=== PATIENT | male | born 1985 | race Caucasian/White ===

== ENCOUNTER 2017-05-06 03:37 | Observation (INO) | payer OTHER ==
[2017-05-06 04:30] LABS: % IMMATURE GRANULYOCYTES 0.3 % (0.0-1.1); ABSOLUTE IMMATURE GRANULOCYTES 0.04 10^3/uL (0.00-0.10); ADD DIFF? NO; ADD MORPH? NO; ADD SCAN? NO; ATYPICAL LYMPHOCYTE FLAG 0 (0-99); FRAGMENT RBC FLAG 0 (0-99); HEMATOCRIT 47.2 % (40.0-51.0); HEMOGLOBIN 15.9 g/dL (13.7-17.5); LEFT SHIFT FLG 0 (0-99); LIPEMIA HEMOLYSIS FLAG 80 (0-99); MEAN CELL HEMOGLOBIN 32.4 pg (27.9-34.1); MEAN CELL HEMOGLOBIN CONCENTR. 33.7 g/dL (32.4-36.7); MEAN CELL VOLUME 96.3 fL (81.5-99.8); MEAN PLATELET VOLUME 10.8 fL (8.7-11.7); PLATELET CLUMPS FLAG 10 (0-99); PLATELET COUNT 256 10^3/uL (150-400); RED CELL DISTRIBUTION WIDTH 12.5 % (11.5-15.2)
[2017-05-06] MEDS ORDERED: LORazepam 2 MG/ML INJ IVP ONE (04:32)
--- NOTE | 2017-05-06 04:32 | EDPHY ---
H & P Stated Complaint: seizure (first time) Time Seen by Provider: 05/06/17 04:07 HPI/ROS: HPI The patient presents with seizure, brought in by ambulance. He was sleeping next to his fiancee at 3:00 a.m., she got up to use the bathroom and noticed that the bed was shaking. She turned notice that he was rigid exhibiting tonic- clonic activity in his upper and lower extremities. This lasted for 1-2 minutes. She called EMS and by the time they arrived his seizure had ceased. He was very tired and confused. His glucose was normal. He has no prior history of seizures. He does not have a family history of epilepsy. He is under stress and has not been sleeping well. He is planning a wedding and he and his fiancee are looking for a home to by. Last night, he went on a mountain bike ride which is quite normal for him. He had a small dinner. He has felt well lately with no fever, no headache. REVIEW OF SYSTEMS Constitutional: No fever, no chills. Eyes: No discharge. ENT: No sore throat. Cardiovascular: No chest pain, no palpitations. Respiratory: No cough, no shortness of breath. Gastrointestinal: No abdominal pain, no vomiting. Genitourinary: No hematuria. Musculoskeletal: No back pain. Skin: No rashes. Neurological: No headache. PMHx: Healthy Soc Hx: Lives with his becca, no alcohol, no drugs PHYSICAL General Appearance: Tired appearing Eyes: Pupils equal and round no pallor or injection ENT, Mouth: Mucous membranes dry Respiratory: There are no retractions, lungs are clear to auscultation Cardiovascular: Regular rate and rhythm Gastrointestinal: Abdomen is soft and non-tender, no masses, bowel sounds normal Neurological: Tired, slow to respond to questions, Poorly cooperative with neurologic exam, cranial nerves 2-12 intact, though no pronator drift, weakness of the lower extremities Skin: Warm and dry, no rashes Musculoskeletal: Neck is supple non tender Extremities: symmetrical, full range of motion Psychiatric: No agitation Source: Patient, Family, EMS Exam Limitations: Clinical condition - Personal History Current Tetanus/Diphtheria Vaccine: Unsure Current Tetanus Diphtheria and Acellular Pertussis (TDAP): Unsure - Medical/Surgical History Hx Asthma: No Hx Chronic Respiratory Disease: No Hx Diabetes: No Hx Cardiac Disease: No Hx Renal Disease: No Hx Cirrhosis: No Hx Alcoholism: No Hx HIV/AIDS: No Hx Splenectomy or Spleen Trauma: No Other PMH: denies - Social History Smoking Status: Never smoked Constitutional: Initial Vital Signs Temperature (C) 36.8 C 05/06/17 03:47 Heart Rate 72 05/06/17 03:47 Respiratory Rate 16 05/06/17 03:47 Blood Pressure 108/64 05/06/17 03:47 O2 Sat (%) 98 05/06/17 03:47 O2 Delivery Mode Room Air O2 (L/minute) 2 Allergies/Adverse Reactions: No Known Allergies Allergy (Unverified 05/06/17 03:48) Home Medications: Medication Instructions Recorded NK [No Known Home Meds] 05/06/17 Medical Decision Making - Diagnostics Imaging Results: CT of head, noncontrast, is unremarkable, discussed with Dr. Desai of Radiology. Differential Diagnosis: This is a 31-year-old male who presents brought in by ambulance for new onset seizure, witnessed by save. He had tonic-clonic activity and appears to be postictal currently. Differential diagnosis includes epilepsy, dehydration, electrolyte disturbance, occult injury, less likely infection given no fever or recent illness or confusion. In the emergency room, basic labs were checked and did reveal an anion gap acidosis which is thought to be a lactic acidosis from his seizure. He is given a L of IV fluid for this. Subsequently, he went to CT scan, however on the way he had a 30 second tonic-clonic episode again with a postictal period following this. He was given Ativan [address] scan was unremarkable. I consulted with [facility], Dr. mathew. She recommends admission for MRI and EEG. She would not start on Keppra at this point, however he has a no other seizure, she recommends Keppra load of 1 g. I have discussed the case with the hospitalist, Dr. Carrasco who will see the patient for admission. - Data Points Laboratory Results: Laboratory Results 05/06/17 03:45 05/06/17 03:45 05/06/17 05/06/17 05/06/17 Unknown 03:45 03:45 WBC 13.55 10^3/uL H 10^3/uL (3.80-9.50) RBC 4.90 10^6/uL 10^6/uL (4.40-6.38) Hgb 15.9 g/dL g/dL (13.7-17.5) Hct 47.2 % % (40.0-51.0) MCV 96.3 fL fL (81.5-99.8) MCH 32.4 pg pg (27.9-34.1) MCHC 33.7 g/dL g/dL (32.4-36.7) RDW 12.5 % % (11.5-15.2) Plt Count 256 10^3/uL 10^3/uL (150-400) MPV 10.8 fL fL (8.7-11.7) Neut % (Auto) 42.7 % % (39.3-74.2) Lymph % (Auto) 48.6 % H % (15.0-45.0) [place] % (Auto) 7.1 % % (4.5-13.0) Eos % (Auto) 0.6 % % (0.6-7.6) Baso % (Auto) 0.7 % % (0.3-1.7) Nucleat RBC Rel Count 0.0 % % (0.0-0.2) Absolute Neuts (auto) 5.80 10^3/uL 10^3/uL (1.70-6.50) Absolute Lymphs (auto) 6.58 10^3/uL H 10^3/uL (1.00-3.00) Absolute Monos (auto) 0.96 10^3/uL H 10^3/uL (0.30-0.80) Absolute Eos (auto) 0.08 10^3/uL 10^3/uL (0.03-0.40) Absolute Basos (auto) 0.09 10^3/uL 10^3/uL (0.02-0.10) Absolute Nucleated RBC 0.00 10^3/uL 10^3/uL (0-0.01) Immature Gran % 0.3 % % (0.0-1.1) Immature Gran # 0.04 10^3/uL 10^3/uL (0.00-0.10) Sodium 140 mEq/L mEq/L (134-144) Potassium 3.6 mEq/L mEq/L (3.5-5.2) Chloride 104 mEq/L mEq/L (97-110) Carbon Dioxide 14 mEq/l L mEq/l (22-31) Anion Gap 22 mEq/L H mEq/L (8-16) BUN 20 mg/dL mg/dL (7-23) Creatinine 0.9 mg/dL mg/dL (0.7-1.3) Estimated GFR > 60 Glucose 126 mg/dL H mg/dL (70-100) Calcium 9.4 mg/dL mg/dL (8.5-10.4) Total Bilirubin 0.8 mg/dL mg/dL (0.1-1.4) AST 33 IU/L IU/L (17-59) ALT 35 IU/L IU/L (21-72) Alkaline Phosphatase 59 IU/L IU/L (38-126) Total Protein 7.6 g/dL g/dL (6.3-8.2) Albumin 5.0 g/dL g/dL (3.5-5.0) Ethyl Alcohol < 10 mg/dL mg/dL (0-10) Medications Given: Discontinued Medications Sodium Chloride (Ns) 1,000 mls @ 0 mls/hr IV ONCE ONE PRN Reason: Wide Open Stop: 05/06/17 06:09 Last Admin: 05/06/17 06:09 Dose: 1,000 mls Lorazepam (Ativan Injection) 1 mg IVP EDNOW ONE Stop: 05/06/17 04:33 Last Admin: 05/06/17 04:33 Dose: 1 mg Departure - Departure Disposition: [facility] Acute Clinical Impression: Seizure, Acidosis Condition: Fair Referrals: Patient,NotPresent [Primary Care Provider] - As per Instructions
[2017-05-06 04:58] LABS: ALANINE AMINOTRANSFERASE 35 IU/L (21-72); ALKALINE PHOSPHATASE 59 IU/L (38-126); ANION GAP 22 mEq/L (8-16); ASPARTATE AMINOTRANSFERASE 33 IU/L (17-59); BILIRUBIN,TOTAL 0.8 mg/dL (0.1-1.4); CALCIUM 9.4 mg/dL (8.5-10.4); CARBON DIOXIDE 14 mEq/l (22-31); CHLORIDE 104 mEq/L (97-110); CREATININE 0.9 mg/dL (0.7-1.3); GLOMERULAR FILTRATION RATE > 60; GLUCOSE 126 mg/dL (70-100); POTASSIUM 3.6 mEq/L (3.5-5.2); SODIUM 140 mEq/L (134-144); TOTAL PROTEIN 7.6 g/dL (6.3-8.2)
[2017-05-06] MEDS ORDERED: KETOROLAC 15 MG/1 ML SDV ONE (05:19)
[2017-05-06] MEDS ORDERED: NS 1,000 ML IV ONE ×2 (06:08→06:29)
[2017-05-06] MEDS ORDERED: LORazepam 2 MG/ML INJ IVP PRN (06:29)
[2017-05-06] MEDS ORDERED: ONDANSETRON DISINTEGRATING 4 MG TAB PO PRN (06:29)
[2017-05-06] MEDS ORDERED: ACETAMINOPHEN 325 MG TAB PO PRN (06:29)
[2017-05-06] MEDS ORDERED: ONDANSETRON 4 MG/2 ML VIAL IVP PRN (06:29)
[2017-05-06 06:51] LABS: ETHANOL SERUM < 10 mg/dL (0-10)
[2017-05-06] MEDS ORDERED: levETIRAcetam 500 MG TAB PO ONE (08:34)
--- NOTE | 2017-05-06 09:16 | GHP ---
[f rep st] HISTORY AND PHYSICAL DATE OF ADMISSION: 05/06/2017 CHIEF COMPLAINT: Seizure. HISTORY OF PRESENT ILLNESS: A 31-year-old male with no significant past medical history, who presen ts when his fiancee notes him with seizure activity in bed at 2:50 a.m. She called 911 and emergenc y transport presented to the house. Seizure lasted for approximately a minute. He was markedly pos tictal after. Did not lose control of his bladder or bowel. Patient was brought to the emergency d epartment, remained postictal at that time. During his evaluation en route to CT scan, patient had another witnessed tonic-clonic seizure. During my evaluation after the second event, the patient is denying any pain, still feels lethargic and hazy. Denies any numbness, tingling, headache, visual changes, dysphagia, chest pain, shortness of breath, abdominal discomfort. He reports being in his normal state of health the day prior to the first episode, was at work without complication, went on a mountain bike ride without complication. Does report there has been stress in the home related t o the recent engagement and wedding planning and that his oral intake of food and fluids has been pr obably diminished from his baseline. PAST MEDICAL HISTORY: None. SOCIAL HISTORY: Negative for tobacco. Rare alcohol. No illicit drugs or marijuana. FAMILY HISTORY: Negative for seizures. Believes that his mom had cardiac disease. REVIEW OF SYSTEMS: A 10-point review of systems is negative with the exception of that reported in the HPI. PHYSICAL EXAMINATION: VITAL SIGNS: Blood pressure 116/66, heart rate 64, respiratory rate 12, 94% on room air, 36.6. GENERAL: This is a healthy appearing male, lying comfortably in bed. HEENT: N otable for dry mucous membranes. Eye exam is negative for any icterus. CARDIAC: Patient is regula r rate and rhythm. No murmurs, gallops, or rubs. PULMONARY: Patient is clear to auscultation bila terally. GASTROINTESTINAL: Positive bowel sounds. ABDOMEN: Soft and nontender in all 4 quadrants . MUSCULOSKELETAL: Negative for any lower extremity edema. SKIN: Negative for any rashes. NEUROLOGIC: Patient is alert and oriented x3 but does seem a bit lethargi c. Strength is 5/5 bilaterally of the upper and lower extremities. Sensation is intact throughout. PSYCHIATRIC: He is pleasant and cooperative on interview and examination. LABORATORY DATA: White count 13.5, creatinine 0.9, anion gap of 22, glucose of 126. Noncontrast CT of the head, which I personally reviewed and interpreted, shows no acute findings. ASSESSMENT AND PLAN: This is a 31-year-old male, presenting with seizure. 1. Acute seizure. There is no clear provocating cause based on patient's review or history. He do es not sound to be a drug user, alcohol user or had any recent trauma to his head. Patient is being admitted for neurologic monitoring. Neurology has been consulted for inpatient evaluation. Will r eview with him the use of a Keppra load in this setting. It seems appropriate after a second episod e. Patient is on seizure precautions. Will wait for additional imaging or evaluation until Neurolo gy sees him. 2. Anion gap acidosis. Suspect secondary to seizure. Will fluid resuscitate with normal saline an d follow. 3. Prophylaxis. Patient is young and should be able to ambulate. DIET: Regular. DISPOSITION: I expect less than 2 midnights if his neurologic evaluation is normal and the patient is safe for disposition to home. I have discussed the case with the emergency room physician. Ellen ent will be triaged to the medical-surgical floor for care. /[id number]/MODL
[2017-05-06 13:36] LABS: ANION GAP 10 mEq/L (8-16); CALCIUM 8.9 mg/dL (8.5-10.4); CARBON DIOXIDE 23 mEq/l (22-31); CHLORIDE 106 mEq/L (97-110); GLOMERULAR FILTRATION RATE > 60; GLUCOSE 103 mg/dL (70-100); POTASSIUM 4.4 mEq/L (3.5-5.2); SODIUM 139 mEq/L (134-144)
--- NOTE | 2017-05-06 14:33 | HOSPPROG ---
Hospitalist Progress Note Assessment/Plan: Patient seen and examined. Did get EEG. MRI will be done much later today. Will keep overnight and monitor. Neurology will see later as well Objective: Vital Signs Temp Pulse Resp BP Pulse Ox 36.8 C 64 19 105/46 L 98 05/06/17 14:07 05/06/17 14:07 05/06/17 14:07 05/06/17 14:07 05/06/17 14:07 Laboratory Results 05/06/17 13:07 05/05/17 05/06/17 05/07/17 05:59 05:59 05:59 Intake Total 1000 Balance 1000 ICD10 Worksheet Patient Problems: Problems Problem Status Onset Acidosis Acute Seizure Acute
--- NOTE | 2017-05-06 15:22 | CPEEG ---
[f rep st] ELECTROENCEPHALOGRAM DATE OF STUDY: 05/06/2017 This is an inpatient EEG performed for 30 minutes. It presents with a posterior dominant rhythm of 7 hertz. During the 30 minutes, I observed no epileptiform discharges. There were a few nonspecifi c sharp waves at times. This is more likely artifact. IMPRESSION: Overall abnormal electroencephalogram consistent with underlying generalized slowing. There is no evidence of any epileptiform discharge or focal abnormalities. /[id number]/MODL
--- NOTE | 2017-05-06 16:09 | NEUROPROG ---
Assessment: [id number] CC: Dr. Juliane Carrasco consulted neurology for seizures. Results of this evaluation were placed in the EMR for her review. HPI: This 31M patient was initially seen 05/06/17. He denied history of seizures. His fiancee noted he had a generalized convulsive seizure during sleep and that he was confused after awakening 1-2 min later. He denied drug/ alcohol use but is under stress and is sleeping poorly. He has no FHx of seizures. He had another generalized seizure witnessed in the [facility] ER so he was admitted and loaded on Keppra. Head CT unremarkable for acute intracranial changes. PMHx: denies SHx: no alcohol or drugs FHx: no seizures ROS: Pt denied acute fever, total vision loss, active severe chest pain, respiratory failure, total body severe rash, total bowel/bladder incontinence, psychosis, active seizures, or active bleeding O: VS bp 116/66 P64 RR12 Satting 94% RA Temp 36.6C General: drowsy Eyes: Fundoscopic exam not able to visualize optic disks CV: Heart RRR, no murmur, no carotid bruit Lungs: Clear to auscultation bilaterally, no rhonchi or rales Neuro: - Mental: . Oriented x person/place/date . concentration appears normal . speech fluency/comprehension normal . memory appears normal . fund of knowledge appear intact - Cranial Nerves: . II: PERRL, VFFTC . III/IV/: EOMI, no nystagmus, normal smooth pursuits, no Ptosis . V: facial sensation intact to LT . VII: face symmetric to eye closure and smile . VIII: hearing intact to conversation . IX/X: uvula raises symmetrically . XI: SCM 5/5 B/L strength . XII: tongue protrudes midline w/nl strength - Motor: . Tone: normal tone in all 4 extremity . Strength: no pronator drift, strength 5/5 throughout (B/L delt, bic, tri, hand medical device sales representative, hf/he, df/pf) - Reflexes: B/L bic/BR/patella 2/4 - Sensory: all 4 extremity intact to light touch - Coord: [id number] wnl, CANDACE wnl, [id number] wnl - Gait: normal casual gait Labs: 05/06/17- CBC WBC 13.55H, CMP CO2 14L Gluc 126H, alcohol neg Rads: 05/06/17- Head CT: no acute changes (I personally visualized the images on ) 05/06/17- EEG: generalized slowing, no epileptiform discharges Assessment: 1.Generalized Seizure: No cause found. Normal neurologic exam 05/06/17 and normal EEG 05/06/17 (other than generalized slowing from recent seizure and/or benzodiazepine med). Will further evaluate for seizure cause with MRI. Recommend AED therapy until f/u with me in otpt clinic in 4-6 weeks. Plan: -Brain MRI w/ and w/o con -Keppra 500mg bid po -Seizure precautions and no driving until seizure free for 90 days -F/U in 4-6 weeks in neurology clinic Neurology will continue to follow, expect he will be able to discharge tomorrow am. Objective: Vital Signs Temp Pulse Resp BP Pulse Ox 36.8 C 64 19 105/46 L 98 05/06/17 14:07 05/06/17 14:07 05/06/17 14:07 05/06/17 14:07 05/06/17 14:07 Laboratory Results 05/06/17 13:07 05/05/17 05/06/17 05/07/17 05:59 05:59 05:59 Intake Total 1000 Balance 1000 Allergies/Adverse Reactions: No Known Allergies Allergy (Unverified 05/06/17 03:48)
[2017-05-06] MEDS ORDERED: GADOBUTROL 10 ML VIAL IVP ONE (17:08)
[2017-05-06 17:21] LABS: PHENCYCLIDINE URINE BCH < 6 ng/ml (NEGATIVE); PHENCYCLIDINE URINE BCH NEGATIVE (NEGATIVE); TETRAHYDROCANNABINOL URINE < 5 ng/mL (NEGATIVE); TETRAHYDROCANNABINOL URINE NEGATIVE (NEGATIVE)
[2017-05-06 20:32] VITALS: O2SAT 96
[2017-05-06] MEDS: levETIRAcetam 500 MG TAB PO SCH (21:13)
[2017-05-07] MEDS: levETIRAcetam 500 MG TAB PO SCH (09:14)
[2017-05-07 11:08] VITALS: BP 111/70; PULSE 58; RESP 18; TEMP 98.3
--- NOTE | 2017-05-07 14:49 | NEUROPROG ---
Assessment: [id number] CC: F/U Seizure Narrative Summary: This male patient was initially seen 05/06/17. He denied history of seizures. His fiancee noted he had a generalized convulsive seizure during sleep and that he was confused after awakening 1-2 min later. He denied drug/alcohol use but is under stress and is sleeping poorly. He has no FHx of seizures. He had another generalized seizure witnessed in the [facility] ER so he was admitted and loaded on Keppra. Head CT unremarkable for acute intracranial changes. HPI: F/U on 05/07/17. Brain MRI unremarkable. No further seizures. He feels better. PMHx: denies SHx: no alcohol or drugs FHx: no seizures Labs: 05/06/17- CBC WBC 13.55H, CMP CO2 14L Gluc 126H, alcohol neg Rads: 05/06/17- Head CT: no acute changes (I personally visualized the images on ) 05/06/17- EEG: generalized slowing, no epileptiform discharges 05/06/17- Brain MRI w/ and w/o con: Normal brain. No source for seizure identified. Assessment: 1.Generalized Seizure: No cause found. Normal neurologic exam 05/06/17, normal brain MRI w/ and w/o con 05/06/17, and normal EEG 05/06/17 (other than generalized slowing from recent seizure and/or benzodiazepine med). 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 Plan: -Keppra 500mg bid po -Seizure precautions and no driving until seizure free for 90 days -F/U in 4-6 weeks in neurology clinic 35 min spent with patient and , majority of time spent counseling on seizures, treatment options, and prognosis. Objective: Vital Signs Temp Pulse Resp BP Pulse Ox 36.8 C 58 L 18 111/70 96 05/07/17 08:00 05/07/17 08:00 05/07/17 08:00 05/07/17 08:00 05/07/17 08:00 Laboratory Results 05/06/17 13:07 05/06/17 05/07/17 05/08/17 05:59 05:59 05:59 Intake Total 4490 Output Total 800 Balance 3690 Allergies/Adverse Reactions: No Known Allergies Allergy (Unverified 05/06/17 03:48)
--- NOTE | 2017-05-07 18:28 | GDS ---
[f rep st] DISCHARGE SUMMARY DISCHARGE DIAGNOSIS: New-onset seizure. HISTORY: This is a 31-year-old male, with no medical problems, who presented with a generalized sei zure. HOSPITAL COURSE: Patient was admitted, and had both EEG and MRI done. They were both normal. He d id have Neurology see the patient, and recommended antiseizure medications until followup. He is al so instructed not to drive for 90 days. The patient does state he has been under a lot of stress an d sleep deprived for some time, which could have been the trigger. DISPOSITION: Home. DISCHARGE MEDICATIONS: Keppra 500 mg twice daily. FOLLOWUP INSTRUCTIONS: He is instructed to follow up with Neurology in 4-6 weeks. He is instructed on several occasions not to drive for 90 days. /[id number]/MODL
== END 2017-05-07 12:49 | disposition home or self-care (01) ==
LOC: F2W 07:57
PROVIDERS: ADMIT Hospitalist; ATTEND Internal Medicine
DX: G40.409 Other generalized epilepsy and epileptic syndromes, not intractable, without status epilepticus (principal); E87.2 Acidosis
CPT/HCPCS: 70450; 70551; 95816; 96361; 96374; 99285; G0378; 80307; A9585; G0480; J1885; J2060